=== PATIENT | female | born 1950 | race Two or more races ===

== ENCOUNTER 2017-12-03 09:22 | Outpatient (CLI) | payer OTHER | END 2017-12-03 15:26 | disposition home or self-care (01) | LOC: RX STUDY 09:22 | DX: R10.9 Unspecified abdominal pain (principal) ==

== ENCOUNTER 2018-09-28 16:20 | Emergency (ER) | payer OTHER ==
[~2018-09-28] VITALS: Ht 152.4 cm; Wt 79.8 kg
== END 2018-09-28 21:24 | disposition home or self-care (01) ==
LOC: ER 16:20
DX: L03.115 Cellulitis of right lower limb (principal)

== ENCOUNTER 2018-12-24 10:19 | Emergency (ER) | payer OTHER ==
[~2018-12-24] VITALS: Ht 160 cm; Wt 76.2 kg
[2018-12-24] MEDS ORDERED: PROTONIX40 MG (10:27)
[2018-12-24] MEDS ORDERED: BENADRYL25 MG PO (11:54)
[2018-12-24] MEDS ORDERED: MEDROLPACK PO (11:54)
[2018-12-24] MEDS ORDERED: ZYRTEC10 M3 PO (11:54)
== END 2018-12-24 12:36 | disposition home or self-care (01) ==
LOC: ER 10:19
DX: L53.8 Other specified erythematous conditions (principal); T78.49XA Other allergy, initial encounter; X58.XXXA Exposure to other specified factors, initial encounter

== ENCOUNTER 2021-04-22 14:42 | Emergency (ER) | payer OTHER ==
[~2021-04-22] VITALS: Ht 157.5 cm; Wt 73.5 kg
[~2021-04-22 14:42] MED LIST: BENADRYL25 MG PO; MEDROLPACK PO; PROTONIX40 MG; ZYRTEC10 M3 PO
[2021-04-22] MEDS ORDERED: FORTAMET500 MG (15:20)
[2021-04-22] MEDS ORDERED: MEDI-MECLIZINE25 MG PO (19:35)
== END 2021-04-22 20:45 | disposition home or self-care (01) ==
LOC: ER 14:42
DX: R42 Dizziness and giddiness (principal)

== ENCOUNTER 2024-09-27 21:53 | Emergency (ER) | payer OTHER ==
[~2024-09-27] VITALS: Ht 160 cm; Wt 72.6 kg
[~2024-09-27 21:53] MED LIST changes: +CELEBREX200MG PO; +FORTAMET500 MG; +MEDI-MECLIZINE25 MG PO
[2024-09-27] MEDS ORDERED: GLIMEPIRIDE4 MG (22:25)
[2024-09-27] MEDS ORDERED: OXYBUTYNIN CHL2.5 MG (22:26)
[2024-09-27] MEDS ORDERED: EZALLOR SPRINKL10 MG PO (22:26)
[2024-09-28 01:32] LABS: HEMATOCRIT 45.4 % (36.0-45.00); HEMOGLOBIN 15.2 g/dL (12.0-15.00); MEAN CELL VOLUME 85.7 fL (80.00-100.00); MEAN CORPUSCULAR HEMOGLOBIN 28.7 pg (27.00-32.0); MEAN CORPUSCULAR HGB CONC 33.5 g/dl (32.0-36.0); PLATELET COUNT 197 K/uL (150-450); RED CELL DISTRIBUTION WIDTH 13.3 % (11.5-14.5)
[2024-09-28 01:35] LABS: PH,URINE 5.5 (5.0-8.0); URINE APPEARANCE Turbid; URINE BILIRRUBIN Small (NEGATIVE); URINE BLOOD Small; URINE COLOR Dark Yellow; URINE KETONE 15 (NEGATIVE); URINE LEUKOCYTE Trace; URINE NITRATE Negative
[2024-09-28 01:39] LABS: URINE BACTERIA 237.4 uL (0.0-1933); URINE RBC 7.8 uL (0.0-20.8); URINE WBC 65.8 uL (0.0-23.2)
[2024-09-28 01:51] LABS: INR 0.99; PARTIAL THROMBOPLASTIN TIME 29.4 SECONDS (22.0-34.0); PROTHROMBIN TIME 10.8 SECONDS (9.0-11.5)
[2024-09-28 01:56] LABS: ALBUMIN 4.1 gm/dL (3.4-5.0); BILIRUBIN TOTAL 0.38 mg/dL (0.3-1.2); CALCIUM 9.3 mg/dL (8.5-10.1); CREATININE SERUM 1.16 mg/dL (0.55-1.02); GFR 45.67; POTASSIUM 3.75 mEq/L (3.5-5.1); TOTAL PROTEIN 8.1 gm/dL (6.4-8.2)
[2024-09-28 02:32] LABS: URINE CAST > 21.83 uL (0.0-1.40); URINE EPITHELIAL CELLS > 201.7 uL (0.0-38.8); URINE GLUCOSE 100 MG/DL (NEGATIVE); URINE MUCUS HEAVY; URINE PROTEIN 300 (NEGATIVE)
[2024-09-28] MEDS ORDERED: TRAMADOL HCL 50 MG TABLET PO ONE (03:15)
[2024-09-28] MEDS ORDERED: 0.9 % SODIUM CHLORIDE 1,000 ML IV SCH (03:15)
[2024-09-28] MEDS ORDERED: FAMOTIDINE/PF 20 MG in 0.9 % SODIUM CHLORIDE 8 ML IV PUSH STA (03:59)
[2024-09-28] MEDS ORDERED: FAMOTIDINE/PF 20 MG/2 ML VIAL ONE (04:04)
== END 2024-09-28 12:00 | disposition home or self-care (01) ==
LOC: ER 21:55
PROVIDERS: General Practice
DX: S09.8XXA Other specified injuries of head, initial encounter (principal); W19.XXXA Unspecified fall, initial encounter; Y93.89 Activity, other specified; Y92.89 Other specified places as the place of occurrence of the external cause; Y99.8 Other external cause status; R55 Syncope and collapse; Z20.822 Contact with and (suspected) exposure to COVID-19; E11.9 Type 2 diabetes mellitus without complications; Z79.84 Long term (current) use of oral hypoglycemic drugs
CPT/HCPCS: 36415; 70450; 71045; 72170; 93005; 96365; 96366; 99284; J3490; J7030